=== PATIENT | female | born 1945 | race Caucasian/White ===

== ENCOUNTER 2016-06-21 09:38 | Emergency (ER) | payer MEDICARE ==
[~2016-06-21] VITALS: Ht 162.6 cm; Wt 83.6 kg
[~2016-06-21 09:38] MED LIST: ACYC400T2 PO; MINO50CA2 PO; PRA20 PO
[2016-06-21 09:54] VITALS: BP 155/80; RESP 12; O2SAT 98
--- NOTE | 2016-06-21 10:12 | ED.REPORT ---
HPI-General Illness Date of Service Jun 21, 2016 ED Provider: Keanu Malone MD The patient is a 71 year old female who was sent to the emergency department from urgent care for throat pain that began last night. The patient has had cold symptoms for the last month that included: cough, ear pain, fatigue, and congestion. Last night after noticing the throat pain she gargled with salt water which seemed to help. Later in the night when she woke up she noticed noticed dysphagia. She looked in the mirror and noticed a "white nodule" in the back of her throat. She gargled with salt water again, took an ibuprofen, and went back to bed. This morning when she woke up the throat pain continued and she went to urgent care. She is able to swallow her own secretions. She denies difficulty breathing. Nursing Notes Stated Complaint: COLD SYMPTOMS Chief Complaint: ENT & Mouth Nursing Notes Reviewed: Yes Allergies: Coded Allergies: cefuroxime (Verified Allergy, Severe, RASH, 08/04/13) cholecalciferol (vit D3) (Verified Allergy, Severe, RASH, 08/04/13) ergocalciferol (vit D2) (Verified Allergy, Severe, RASH, 08/04/13) moxifloxacin (Verified Allergy, Unknown, 08/04/13) pravastatin (Verified Allergy, Unknown, 08/04/13) Scheduled Acyclovir (Acyclovir) 400 Mg Tablet 400 MG PO TIDWA Clindamycin (Clindamycin) 300 Mg Capsule 300 MG PO QID Minocycline (Minocycline) 50 Mg Capsule 50 MG PO DAILY Pravastatin (Pravachol) 20 Mg Tab 20 MG PO DAILY Prednisone (PredniSONE) 20 Mg Tablet 40 MG PO DAILY General Time Seen by MD: 10:08 Chief Complaint Sore throat Hx Obtained From: Patient, Primary care provider (urgent care physician) Sudden in Onset?: No Onset Occurred: Yesterday Symptom Duration: Since onset Location: : Mouth (throat) Quality: Painful Severity: Current: Mild Severity: Maximum: Mild Recent Healthcare: No recent hospitalization, Recent doctor visit Similar Sx Previous: No Past Medical History Family History Noncontributory Smoking History Unknown if Ever Smoker Social History Other Social History: Local resident Ambulatory Status Independent Review of Systems Full Review of Systems Constitutional: Reports: Fatigue Ears / Nose / Throat: Reports: Earache bilateral, Nasal congestion, Throat pain Respiratory: Reports: Non-productive cough (improved), Denies: Shortness of breath GI: Reports: Dysphagia Complete sys rev & neg: except as marked. Physical Exam Vital Signs Vital Signs Date Time Temp Pulse Resp B/P Pulse Ox O2 Delivery O2 Flow Rate FiO2 06/21/16 09:54 36.3 57 12 155/80 98 Initial VS: Reviewed Head / Eyes: Atraumatic, Normocephalic, PERRL Neck: Supple, Non-tender, Full range of motion Abdomen / GI: Soft, Non-tender, No guarding, No rebound, No distention Lymphatic: No lymphadenopathy Extremities: Vascular intact, Neuro intact, No swelling, No tenderness Skin: Warm, Dry, No cyanosis Neurologic: Alert, Oriented, Nonfocal Psychiatric: Mood/affect normal, Behavior normal, Normal thought content General/Constitutional: Awake, Alert, Cooperative ENT: Airway patent, Mucous membranes moist, No facial swelling Pharynx / Tonsils / Uvula: Positive: Pharyngeal erythema, Tonsillar erythema L , Tonsillar erythema R, Tonsillar exudate L, Tonsillar exudate R, Tonsillar swelling R, Negative: Peritonsil abscess L, Peritonsil abscess R Right Ear / Mastoid: Positive: Fluid behind TM clear, Negative: Fluid behind TM purulent, Tympanic membrane bulging, Tympanic membrane red Left Ear / Mastoid: Positive: Fluid behind TM clear, Negative: Fluid behind TM purulent, Tympanic membrane bulging, Tympanic membrane red Swelling of the soft palate on the right side. mild maxillary sinus tenderness Respiratory / Chest: Atraumatic, Breath sounds NL, Breath sounds = bilat, No respiratory distress, No rales, No rhonchi, No wheezing Cardiovascular: Heart rate NL, Regular rhythm, Heart sounds NL, No gallop, No murmurs, No rubs, Cap refill not delayed, Peripheral circulation NL Interpretation & Diagnostics Interpretation & Diagnostics: Rapid strep: negative Re-Eval/Medical Decision Med Decision/Clinical Course 71-year-old female with upper respiratory symptoms 1 month. Worsening sore throat times one day. Seen at urgent care and sent over for throat swelling. Patient with mild oropharyngeal erythema with exudates. There is no evidence of abscess. Rapid strep negative. Vital signs stable. We will treat sinusitis and pharyngitis with steroids and antibiotic course. Return precautions regarding signs symptoms peritonsillar abscess. Follow up primary doctor 1-2 days for reevaluation. Source of Hx: Old records, Private physician Time of Eval: 10:32 Re-Evaluation/Progress Note: Rechecked the patient. She is able to swallow fluids. Disussed results, diagnosis, and plan for discharge. Counseled Regarding: Diagnosis, Need for follow-up, When/why to return to ED Discharge & Departure Primary Impression: Sinusitis Sinusitis location: unspecified location Chronicity: unspecified Qualified Code: J32.9 - Chronic sinusitis, unspecified Additional Impression: Pharyngitis Pharyngitis/tonsillitis etiology: unspecified etiology Qualified Code: J02.9 - Acute pharyngitis, unspecified Disposition: Home Discharge Condition All VS Reviewed: Yes Condition: Stable Patient Instructions: Sinusitis (ED) Additional Instructions: Thank you for entrusting us with your care today. Your rapid strep test today was negative. It is possible that you may be developing a small localized infection in your throat but this is not present on your exam today. I have written you a prescription for steroids and antibiotics. Continue to gargle salt water and use throat lozenges. Make sure to rest and drink plenty of fluids. Followup with your primary doctor in the next few days for re- evaluation. Seek care for throat swelling, difficulty swallowing, drooling, difficulty speaking, difficulty breathing, or any other new or concerning symptoms. Referrals: Rosie Tyler DO (PCP) Ruddyibdaljit Attestation Portions of this note were transcribed by Sandra Traore. I, Dr. Malone personally performed the history, physical exam and medical decision-making; I reviewed and confirmed the accuracy of the information in the transcribed note. Signed by: Brooke Schneider, 06/21/2016 at 1045. copies to: Rosie Tyler Ben M MD Jun 21, 2016 10:12 Sandra Traore Jun 21, 2016 10:19
[2016-06-21] MEDS ORDERED: PRE20 PO (10:46)
[2016-06-21] MEDS ORDERED: CLIN-78 PO (10:46)
== END 2016-06-21 10:47 | disposition home or self-care (01) ==
LOC: SED 09:38
DX: J32.9 Chronic sinusitis, unspecified (principal); J02.9 Acute pharyngitis, unspecified; R05 Cough; H92.03 Otalgia, bilateral; Z88.1 Allergy status to other antibiotic agents; Z88.8 Allergy status to other drugs, medicaments and biological substances